=== PATIENT | female | born 1980 | race African-American/Black ===

== ENCOUNTER 2018-04-14 18:07 | Emergency (ER) | payer SELFPAY | END 2018-04-14 18:08 | disposition left against medical advice (07) | LOC: ERS 18:07 | DX: Z53.21 Procedure and treatment not carried out due to patient leaving prior to being seen by health care provider (principal) ==

== ENCOUNTER 2019-04-30 16:01 | Observation (INO) | payer SELFPAY ==
[2019-04-30 17:30] LABS: #Eosinphils 0.2 thou/uL (0.0-0.7); #Lymphocytes 1.8 thou/uL (1.20-3.40); #Monocytes 0.5 thou/uL (0.11-0.59); #Neutrophils 4.7 thou/uL (1.40-6.50); %Basophils 0.3 % (0.0-1.0); %Eosinophils 2.2 % (0.0-10.0); %Lymphocytes 24.5 % (21.0-51.0); %Monocytes 6.8 % (0.0-10.0); %Neutrophils 66.3 % (42.0-75.0); Hemoglobin 9.7 g/dL (12.0-16.0); Mean Corpuscular HGB CONC 30.7 g/dL (32.0-36.0); Mean Corpuscular Hemoglobin 24.8 pg (27.0-31.0); Mean Corpuscular Volume 80.7 fL (78.0-98.0); Mean Platelet Volume 9.2 fL (7.4-10.4); Platelet Count 192 thou/uL (130-400); RBC Distribution Width 17.9 % (11.5-14.5); Red Blood Cell (RBC) Count 3.91 mill/uL (4.20-5.40); White Blood Cell (WBC) Count 7.1 thou/uL (4.8-10.8)
[2019-04-30 18:00] LABS: ALT (SGPT) 10 U/L (8-55); AST (SGOT) 18 U/L (5-34); Albumin 4.4 g/dL (3.5-5.0); Alkaline Phosphatase 59 U/L (40-110); Anion Gap 8 mmol/L (10-20); BUN (Urea Nitrogen) 5 mg/dL (7.0-18.7); Bilirubin, Total 0.4 mg/dL (0.2-1.2); CK (CPK) 84 U/L (29-168); Calc. Creatinine Clearance 0 mL/min (70-130); Calcium 9.2 mg/dL (7.8-10.44); Carbon Dioxide 26 mmol/L (22-29); Chloride 108 mmol/L (98-107); Estimated GFR-MDRD 79; Globulin 3.6 g/dL (2.4-3.5); Glucose 95 mg/dL (70-105); Potassium 4.1 mmol/L (3.5-5.1); Sodium 138 mmol/L (136-145)
[2019-04-30] MEDS ORDERED: Aspirin Chewable 81 MG TAB ONE (18:02)
--- NOTE | 2019-04-30 18:22 | RAD ---
XR Chest 1 View Portable History: Chest pain Comparison: None. Findings: Lungs are clear. No pneumothorax. No effusion. No acute osseous abnormality. Impression: No acute intrathoracic abnormality.
--- NOTE | 2019-04-30 21:07 | HP ---
PRESENTING COMPLAINT: Substernal chest pain. HISTORY OF PRESENT ILLNESS: Ms. Prasanna Celis is a 38-year-old female with past medical history of illicit drug use, history of presumed coronary artery disease, who presented to the hospital today because of substernal chest pain, which happened earlier this evening while transporting her granddaughter to the hospital after the granddaughter was having seizures. The patient states she was in the ambulance with her granddaughter when she started experiencing substernal chest pain. Pain was nonradiating, associated with feeling of dizziness. She denies any nausea or vomiting. She states she had similar pain in 2007. She was diagnosed with having an NC. Though she states she did not have a cardiac cath done or stress test before, she was discharged from the hospital bed, no cardiology followup was scheduled for her. There is no immediate family history of coronary artery disease, although extensive history of diabetes and hypertension. She admits to previous tobacco use as well as illicit drug use, but stopped over 10 years ago now. She rates pain now at about 3/10 after sublingual nitroglycerin. PAST MEDICAL HISTORY: Self-reported, coronary artery disease in 2007. PAST SURGICAL HISTORY: None. SOCIAL HISTORY: History of former tobacco use. Occasional alcohol use now. No history of illicit drug use now. FAMILY HISTORY: Significant for parents with diabetes and hypertension, but no coronary artery disease. Grandmother with history of congestive heart failure. REVIEW OF SYSTEMS: All systems review x14 were negative. The patient admits to some intermittent cramping and tingling in the lower extremity, symptoms does not appear to be worsened with walking. HOME MEDICATIONS: Unknown. ALLERGIES: NO KNOWN DRUG ALLERGIES. PHYSICAL EXAMINATION: CURRENT VITAL SIGNS: Blood pressure of 129/68, respiratory rate of 18, O2 sat is 95% on room air, and temp afebrile. GENERAL: Slightly overweight young female, sitting up in bed. HEENT: Head is atraumatic and normocephalic. Pupils equal and reactive to light. NECK: No JVD. No carotid bruit. RESPIRATORY: Good air entry. No crepitations. CARDIOVASCULAR: S1 and S2, rate and rhythm regular. Mild lower sternal area tenderness on palpation. ABDOMEN: Full, soft, and nontender. No epigastric area tenderness. Bowel sounds positive. RECTAL: Deferred. EXTREMITIES: No calf tenderness. No pedal edema. NEUROLOGIC: The patient is alert and oriented. Cranial nerves 2 through 12 grossly intact. LABORATORY DATA: WBC 7.1, hemoglobin 9.7, and platelet 192. Sodium 138, potassium 4.1, BUN 5, and creatinine 0.9. Troponin 0.012. CK 84. AST and alkaline phosphatase normal. Chest x-ray shows no acute intrathoracic abnormality. EKG shows normal sinus rhythm, no ST-segment changes, but noted T-wave inversion in all the leads. IMPRESSION: 1. Atypical chest pain - possibly due to acute coronary syndrome, although low likelihood. Present of T-wave changes, may be due to previous drug-induced injury. We will do serial set of cardiac enzymes. We will continue nitroglycerin paste for now. We will also continue . The patient will benefit from inpatient or outpatient stress test if negative cardiac enzymes. 2. Anemia. We will obtain iron profile. 3. Deep venous thrombosis prophylaxis, subcutaneous Lovenox. 4. Advanced directives. The patient is full code. Total time spent on review of record, discussion with the patient and evaluation is greater than 60 minutes. Job ID: [id number]
[2019-04-30] MEDS ORDERED: Sodium Chloride 0.9% 1,000 ML IV SCH (22:03)
[2019-04-30] MEDS ORDERED: Morphine 2 MG/ML SYRINGE SLOW IVP PRN (22:03)
[2019-04-30] MEDS ORDERED: Acetaminophen 325 MG TAB PO PRN (22:03)
[2019-04-30] MEDS ORDERED: Famotidine 20 MG TAB PO SCH (22:15)
[2019-04-30] MEDS: HYDROcodone/Acetaminophen 5/325 mg Tablet PO PRN (22:17)
[2019-04-30 22:38] LABS: Iron 28 ug/dL (50-170); Iron Binding Capacity, Total 410 mcg/dL (265-497)
[2019-04-30 22:43] LABS: Troponin I 0.019 ng/mL (< 0.028)
[2019-05-01] MEDS: Nitroglycerin 2% Ointment 1 INCH/1 GM Packet TOP SCH ×2 (01:24→12:43)
[2019-05-01 02:22] LABS: Troponin I Less than 0.010 ng/mL (< 0.028)
[2019-05-01 02:44] LABS: ALT (SGPT) 8 U/L (8-55); AST (SGOT) 15 U/L (5-34); Albumin 3.9 g/dL (3.5-5.0); Alkaline Phosphatase 52 U/L (40-110); Anion Gap 9 mmol/L (10-20); BUN (Urea Nitrogen) 6 mg/dL (7.0-18.7); Bilirubin, Total 0.3 mg/dL (0.2-1.2); Calc. Creatinine Clearance 114 mL/min (70-130); Calcium 8.9 mg/dL (7.8-10.44); Carbon Dioxide 26 mmol/L (22-29); Cardiac Risk 4.5 (Less than 4.5); Chloride 107 mmol/L (98-107); Cholesterol 113 mg/dl (< 200 Desired); Estimated GFR-MDRD 84; Globulin 3.5 g/dL (2.4-3.5); Glucose 109 mg/dL (70-105); HDL Cholesterol 25 mg/dL (>60 Neg Risk); LDL Cholesterol, Calculated 73 mg/dL; Potassium 3.9 mmol/L (3.5-5.1); Protein, Total 7.4 g/dL (6.0-8.3); Sodium 138 mmol/L (136-145); Triglycerides 75 mg/dL (Less than 150)
[2019-05-01] MEDS ORDERED: Ferrous Sulfate 325 MG TAB PO SCH (08:00)
[2019-05-01] MEDS ORDERED: Aspirin 325 MG TAB PO SCH (08:00)
[2019-05-01] MEDS ORDERED: Enoxaparin Sodium 40 MG/0.4 ML SYRINGE SC SCH (09:00)
[2019-05-01] MEDS ORDERED: FLU VACC QS2019-20(6MOS UP)/PF 60 MCG/0.5 ML SYRINGE IM ONE (09:00)
[2019-05-01] MEDS ORDERED: Famotidine 20 MG TAB PO SCH (09:00)
[2019-05-01] MEDS ORDERED: ADENOSINE 60 MG/20 ML VIAL ONE (11:32)
[2019-05-01 12:41] VITALS: BP 126/90; TEMP 98.1
[2019-05-01] MEDS: HYDROcodone/Acetaminophen 5/325 mg Tablet PO PRN (12:41)
[2019-05-01] MEDS: Aspirin 325 mg Enteric Coated Tablet PO SCH ×2 (12:42→12:43)
[2019-05-01 12:53] LABS: BHCG - Serum Negative (NEGATIVE); Pregs Control Background? CLEAR/WHITE (CLR/WHITE); Pregs Control Bar Appear? YES (CONTROL BAR)
[2019-05-01] MEDS ORDERED: Benzonatate 100 MG CAP PO PRN (13:15)
--- NOTE | 2019-05-01 14:46 | NM ---
Nuclear medicine myocardial perfusion scan: 05/01/2019 COMPARISON: None HISTORY: Chest pain TECHNIQUE: SPECT imaging of the left ventricular myocardium obtained during stress and rest following the intravenous administration of 31.2 and 9.1mCi technetium 99 M labeled sestamibi respectively. FINDINGS: No discrete reversible defect. There is a very small fixed defect at the cardiac apex/anter ior wall junction. TID is 1.1. Left ventricular wall motion appears within normal limits. End-diastolic volume is 95 mL and end systolic volume is 44 mL. Left ventricular ejection fraction is estimated at 54%. IMPRESSION: No discrete reversible defect. Normal left ventricular wall motion. Estimated LVEF of 54%.
[2019-05-01] MEDS ORDERED: Nicotine 14 MG PATCH TD SCH (15:00)
--- NOTE | 2019-05-01 17:43 | DIS ---
DATE OF ADMISSION: 04/30/2019 DATE OF DISCHARGE: 05/01/2019 DISCHARGE DIAGNOSES: 1. Chest pain. 2. Anemia. HOSPITAL COURSE: The patient is a 38-year-old female, who initially presented to the hospital with complaints of chest tightness. Her troponins x3 were unremarkably negative. She was found to have some mild iron deficiency anemia. Serum was negative. She underwent a stress test, which indicated a non-discrete reversible defect, normal left ventricular wall motion, EF of 54%. She does have a history of prior NM. This was possible attributed to substance abuse. The patient currently feels well. She is chest pain-free. She will be discharged home. Her home medications will be iron 325 daily and I have asked her to take a stool softener. PHYSICAL EXAMINATION: VITAL SIGNS: Temperature 98.1, heart rate 72, respiratory rate 20, oxygen saturation 100% on room air, blood pressure 126/90. GENERAL: She is awake, alert, and oriented x3. Does not appear in distress. CV: S1 and S2 present. No murmurs, rubs, or gallops. ABDOMEN: Soft and nontender. Bowel sounds are present x2. LABORATORY DATA: Her LDL was high, and her HDL was low. ASSESSMENT AND PLAN: I have told her about diet, exercise, and she currently does not want to be medicated. She wants to try diet, exercise, and she wants to follow up with her primary, which I think she should next week and I have asked her to repeat her cholesterol levels in the next 3 to 6 months. Job ID: [id number]
== END 2019-05-01 16:38 | disposition home or self-care (01) ==
LOC: ERS 16:01 → 2SW 22:02 → INTOOBSV 22:02
PROVIDERS: ADMIT Internal Medicine; ATTEND Internal Medicine
DX: R07.89 Other chest pain (principal); D50.9 Iron deficiency anemia, unspecified; I25.10 Atherosclerotic heart disease of native coronary artery without angina pectoris; I25.2 Old myocardial infarction; Z87.891 Personal history of nicotine dependence; Z88.5 Allergy status to narcotic agent
CPT/HCPCS: 36415; 71045; 78452; 80053; 80061; 82550; 83540; 83550; 84484; 84703; 85025; 93005; 93017; 94760; 96360; 96361; 96372; A9500; G0378; J0153; J1650

== ENCOUNTER 2019-09-07 11:24 | Observation (INO) | payer SELFPAY ==
[~2019-09-07 11:24] MED LIST: Iopamidol-370 76% 500 ML 1 ML ONE
--- NOTE | 2019-09-07 11:54 | CT ---
Exam: CT brain PROVIDED CLINICAL HISTORY: Left-sided numbness COMPARISON: None FINDINGS: The ventricular system is normal in size and morphology. No evidence for intracranial hemorrhage or mass effect. The extracranial soft tissues and osseous structures demonstrate no evidence for an acute abnormality. IMPRESSION: No evidence for intracranial hemorrhage or mass effect. Findings communicated to Dr. Verma at 11:5 1 AM 09/07/2019.
[2019-09-07 11:56] LABS: #Basophils 0.1 thou/uL (0.0-0.2); #Eosinphils 0.2 thou/uL (0.0-0.7); #Lymphocytes 1.6 thou/uL (1.20-3.40); #Monocytes 0.5 thou/uL (0.11-0.59); %Basophils 2.1 % (0.0-1.0); %Eosinophils 4.3 % (0.0-10.0); %Lymphocytes 37.5 % (21.0-51.0); %Monocytes 11.3 % (0.0-10.0); %Neutrophils 44.9 % (42.0-75.0); Hemoglobin 8.6 g/dL (12.0-16.0); Mean Corpuscular HGB CONC 30.6 g/dL (32.0-36.0); Mean Corpuscular Hemoglobin 23.4 pg (27.0-31.0); Mean Corpuscular Volume 76.4 fL (78.0-98.0); Mean Platelet Volume 10.1 fL (7.4-10.4); Platelet Count 284 thou/uL (130-400); RBC Distribution Width 19.1 % (11.5-14.5); Red Blood Cell (RBC) Count 3.67 mill/uL (4.20-5.40); White Blood Cell (WBC) Count 4.4 thou/uL (4.8-10.8)
--- NOTE | 2019-09-07 12:09 | CT ---
EXAM: CT angiogram chest and abdomen with IV contrast and 3-D reconstructions PROVIDED CLINICAL HISTORY: Chest and back pain as well as left-sided weakness COMPARISON: None FINDINGS: The thoracic and abdominal aorta are normal in caliber without evidence of an aortic dissection. Ther e is a common origin of the innominate artery and left common carotid artery. The origins of the great vessels are patent. The celiac, superior mesenteric, and inferior mesenteric arteries are paten t. The imaged portions of the bilateral common iliac arteries are patent. Few small blebs are seen within the right upper lobe. Minimal linear atelectasis is present in the le ft lower lobe. There is a small nonspecific approximately 3 mm pleural-based nodular density posterior aspect right lower lobe. No pulmonary nodule, mass, or pleural effusion is identified. No c onsolidation is seen in the lungs bilaterally. There is no evidence of mediastinal, hilar, or axillary lymphadenopathy. The liver, spleen, pancreas, bilateral adrenal glands, and kidneys demonstrate a normal CT appearance for arterial phase of imaging. No free fluid, fluid collection, or lymphadenopathy is seen in the abdomen. The appendix where visualized is normal in caliber. Loops of small bowel are also normal in caliber. No suspicious lytic or sclerotic osseous lesions are identified. IMPRESSION: 1. Thoracic and abdominal aorta are normal in caliber without evidence of an aortic dissection or ane urysm. 2. No acute findings are seen in the chest or abdomen.
[2019-09-07 12:22] LABS: ALT (SGPT) 10 U/L (8-55); AST (SGOT) 20 U/L (5-34); Albumin 4.1 g/dL (3.5-5.0); Alkaline Phosphatase 57 U/L (40-110); Anion Gap 14 mmol/L (10-20); BUN (Urea Nitrogen) 4 mg/dL (7.0-18.7); Bilirubin, Total 0.3 mg/dL (0.2-1.2); CK (CPK) 209 U/L (29-168); Calc. Creatinine Clearance 0 mL/min (70-130); Calcium 9.1 mg/dL (7.8-10.44); Carbon Dioxide 20 mmol/L (22-29); Chloride 106 mmol/L (98-107); Estimated GFR-MDRD 86; Globulin 3.8 g/dL (2.4-3.5); Glucose 92 mg/dL (70-105); Potassium 3.7 mmol/L (3.5-5.1); Protein, Total 7.9 g/dL (6.0-8.3); Sodium 136 mmol/L (136-145)
[2019-09-07 12:40] LABS: Bilirubin Negative (Negative); Blood, Urine Negative (Negative); Clarity Clear (Clear); Glucose, Urine (Dipstick) Normal (Negative); Leukocyte Negative Leu/uL (Negative); Nitrite Negative (Negative); Protein, Urine (Dipstick) Negative (Neg-Trace); Urobilinogen Normal mg/dL (Less than 2)
[2019-09-07 12:53] LABS: Amphetamine Not Detected (NotDetected); Barbiturates Screen Not Detected (NotDetected); Benzodiazepine Screen Not Detected (NotDetected); Cocaine Metabolite Screen Not Detected (NotDetected); Medtox Control Line Valid? VALID (VALID); Medtox Reader # READER 4; Methadone Not Detected (NotDetected); Methamphetamine Not Detected (NotDetected); Opiate Screen Not Detected (NotDetected); Oxycodone Screen Not Detected (NotDetected); Phencyclidine (PCP) Not Detected (NotDetected); THC/Cannabinoid Screen Detected (NotDetected); Tricyclic Screen Not Detected (NotDetected)
[2019-09-07] MEDS ORDERED: Ketorolac Tromethamine 30 MG/ML VIAL ONE (13:06)
[2019-09-07 14:22] VITALS: BMI 30.7
[2019-09-07 15:11] LABS: Troponin I Less than 0.010 ng/mL (< 0.028)
[2019-09-07 18:11] LABS: Troponin I Less than 0.010 ng/mL (< 0.028)
[2019-09-07] MEDS ORDERED: Pantoprazole 40 MG VIAL IVP SCH (18:45)
--- NOTE | 2019-09-07 18:55 | PDOC.HHP ---
Hospitalist HPI - History of Present Illness chest pain History of Present Illness: 39yo F w/ MHx of HTN and reported AMI presents for chest pain. Woken up by pain this morning, stabbing, right below sternum, radiating to the right and back, constant. Has never had such pain of that character before. attempted to take aspirin for the pain but wasn't improving so was brought to the ED. on encounter, lying comfortably in bed and has complains of thoracic back pain. Denies fever, n/v, fatigue, syncope presyncope, arm or jaw pain, palpitations, swelling, pleuritic pain, cough, diarrhea, hematochezia, melena, dysuria, hematuria, abnormal menses, trauma ED Course: In the ED, found to have weakness and numbness on the left side. CT brain and thorax revealed no ischemia or dissection. She was admitted to the stroke unit for additional workup and managmeent Hospitalist ROS - Review of Systems All other systems reviewed; all pertinent +/- noted in HPI/Subj Hospitalist History - Past Medical History Source: patient, old records Cardiac: reports: TX (unconfirmed), Hyperlipidemia Pulmonary: reports: hypertension. denies: CVA/TIA/stroke, congestive heart failure Gastrointestinal: denies: GERD, GI bleed, Gastritis, Peptic ulcer disease Heme/Onc: reports: Anemia NOS Psych: denies: Addictions - Past Surgical History Past Surgical History: reports: no pertinent history - Family History Family History: reports: cancer, hypertension - Social History Smoking Status: Former smoker Tobacco Type: cigarettes Alcohol: reports: None Drugs: reports: none Living Situation: With Family Domestic Violence: Negative Activity level: independent ambulation Other Social History: sexually inactive for the past several months - Exam General Appearance: NAD, awake alert Eye: PERRL Neck: no JVD, no carotid bruit Heart: RRR, no murmur, no gallops, no rubs Respiratory: CTAB, no wheezes, no rales, no ronchi Gastrointestinal: soft, non-tender, non-distended, normal bowel sounds Extremities: no edema Neurological: cranial nerve grossly intact. negative: facial droop, hemiplegia , speech deficit, vision deficit Neurological - other findings: L upper and lower 4/5; reduced sensation to light touch; R intact Musculoskeletal - other findings: severe point tenderness at level T6-T7 Psychiatric: normal affect, normal behavior, A&O x 3 Hospitalist Results - Labs Result Diagrams: 09/07/19 11:48 09/07/19 17:36 Lab results: WBC 4.4 thou/uL (4.8-10.8) L 09/07/19 11:48 Hgb 8.6 g/dL (12.0-16.0) L 09/07/19 11:48 Hct 28.0 % (36.0-47.0) L 09/07/19 11:48 MCV 76.4 fL (78.0-98.0) L 09/07/19 11:48 Plt Count 284 thou/uL (130-400) 09/07/19 11:48 Neutrophils % 44.9 % (42.0-75.0) 09/07/19 11:48 Sodium 136 mmol/L (136-145) 09/07/19 11:48 Potassium 3.7 mmol/L (3.5-5.1) 09/07/19 11:48 Chloride 106 mmol/L (98-107) 09/07/19 11:48 Carbon Dioxide 20 mmol/L (22-29) L 09/07/19 11:48 BUN 4 mg/dL (7.0-18.7) L 09/07/19 11:48 Creatinine 0.88 mg/dL (0.6-1.1) 09/07/19 11:48 Glucose 92 mg/dL (70-105) 09/07/19 11:48 Calcium 9.1 mg/dL (7.8-10.44) 09/07/19 11:48 Total Bilirubin 0.3 mg/dL (0.2-1.2) 09/07/19 11:48 AST 20 U/L (5-34) 09/07/19 11:48 ALT 10 U/L (8-55) 09/07/19 11:48 Alkaline Phosphatase 57 U/L (40-110) 09/07/19 11:48 Creatine Kinase 209 U/L (29-168) H 09/07/19 11:48 Troponin I Less than 0.010 ng/mL (< 0.028) 09/07/19 17:36 Serum Total Protein 7.9 g/dL (6.0-8.3) 09/07/19 11:48 Albumin 4.1 g/dL (3.5-5.0) 09/07/19 11:48 Urine Ketones Negative mg/dL (Negative) 09/07/19 12:25 Urine Blood Negative (Negative) 09/07/19 12:25 Urine Nitrite Negative (Negative) 09/07/19 12:25 Ur Leukocyte Esterase Negative Jocy/uL (Negative) 09/07/19 12:25 - EKG Interpretation EKG: normal sinus with no signs of ischemia - Radiology Interpretation CT scan - head Status: report reviewed by me CT scan - chest Status: report reviewed by me Hospitalist H&P A/P - Problem (1) Epigastric abdominal pain Code(s): R10.13 - EPIGASTRIC PAIN Status: Acute (2) Left-sided weakness Code(s): R53.1 - WEAKNESS Status: Acute (3) Hypertension Code(s): I10 - ESSENTIAL (PRIMARY) HYPERTENSION Status: Acute - Plan Plan: #left sided weakness #TIA -patient's symptoms resolved in ED, now exhibits 4/5 upper and lower extremity -CT head showing no hemorrhage or signs of ischemia; CT dissection unremarkable -patient endorses high BP sometime SBP > 180s; -admitted to telemetry -may be a result of hypertensive emergency; will continue to follow #epigastric pain -radiating to the back -woke patient up from sleep -noncardiac; had stress test in 2019; trop -ve and EKG sinus with no signs of ischemia -microcytic anemia; endorses normal menses -FOBT; if positive, will assess indication for urgent endoscopy -iron panel -lipase, CMP, gallbladder US #back pain -reports of acute thoracic back pain approx level T6 with radiculopathic symptoms -severe point tenderness on exam with no overlying skin changes -history of substance abuse; not honest about current abuse -tylenol PRN; if no relief, norco PRN -thoracic x-ray 2 view #substance abuse -urine +ve for cannabis; denies abusing Full code DVT PPx: SCDs GI PPx on pantoprazole for possible GI bleed patient's surrogate is ; expected LOS 1 midnight
[2019-09-07] MEDS ORDERED: Acetaminophen 650 MG/20.3 ML UDCUP PO PRN (18:56)
[2019-09-07 19:25] LABS: ALT (SGPT) 9 U/L (8-55); AST (SGOT) 19 U/L (5-34); Albumin 3.9 g/dL (3.5-5.0); Alkaline Phosphatase 50 U/L (40-110); Anion Gap 13 mmol/L (10-20); BUN (Urea Nitrogen) 4 mg/dL (7.0-18.7); Bilirubin, Total 0.4 mg/dL (0.2-1.2); Calc. Creatinine Clearance 103 mL/min (70-130); Calcium 8.7 mg/dL (7.8-10.44); Carbon Dioxide 22 mmol/L (22-29); Chloride 104 mmol/L (98-107); Estimated GFR-MDRD 81; Globulin 3.6 g/dL (2.4-3.5); Glucose 97 mg/dL (70-105); Iron 16 ug/dL (50-170); Iron Binding Capacity, Total 374 mcg/dL (265-497); Iron Binding Capacity, Total 383 mcg/dL (265-497); Lipase 11 U/L (8-78); Potassium 3.3 mmol/L (3.5-5.1); Protein, Total 7.5 g/dL (6.0-8.3); Sodium 136 mmol/L (136-145)
[2019-09-07] MEDS ORDERED: Sodium Chloride 0.9% (PF) 10 ML VIAL FS PRN (19:25)
--- NOTE | 2019-09-07 20:13 | RAD ---
Radiograph thoracic spine 3 views: HISTORY: 39-year-old female with mid back pain and point tenderness. FINDINGS: Vertebral body heights are maintained. No high-grade degenerative disc disease. Pedicles are intact. IMPRESSION: Negative
[2019-09-07] MEDS: HYDROcodone/Acetaminophen 5/325 mg Tablet PO PRN (21:07)
[2019-09-07] MEDS: Pantoprazole 40 MG VIAL IVP SCH (21:11)
[2019-09-08 04:59] LABS: #Basophils 0.1 thou/uL (0.0-0.2); #Eosinphils 0.2 thou/uL (0.0-0.7); #Lymphocytes 1.7 thou/uL (1.20-3.40); #Monocytes 0.4 thou/uL (0.11-0.59); #Neutrophils 3.2 thou/uL (1.40-6.50); %Basophils 1.1 % (0.0-1.0); %Eosinophils 3.6 % (0.0-10.0); %Lymphocytes 29.8 % (21.0-51.0); %Monocytes 7.6 % (0.0-10.0); %Neutrophils 57.8 % (42.0-75.0); Mean Corpuscular Hemoglobin 23.1 pg (27.0-31.0); Mean Corpuscular Volume 77.1 fL (78.0-98.0); Mean Platelet Volume 9.9 fL (7.4-10.4); Platelet Count 224 thou/uL (130-400); RBC Distribution Width 19.3 % (11.5-14.5); Red Blood Cell (RBC) Count 3.44 mill/uL (4.20-5.40); White Blood Cell (WBC) Count 5.6 thou/uL (4.8-10.8)
--- NOTE | 2019-09-08 07:41 | ULT ---
EXAM: Right upper quadrant ultrasound PROVIDED CLINICAL HISTORY: Epigastric pain COMPARISON: None FINDINGS: Visualized portions of the pancreas appear normal. Liver demonstrates no mass or intrahepatic biliary ductal dilatation. Common duct is nondilated. Gallbladder demonstrates no stones, wall thickening or pericholecystic flu id. Right kidney demonstrates no hydronephrosis or mass. IMPRESSION: Unremarkable right upper quadrant ultrasound.
[2019-09-08] MEDS: HYDROcodone/Acetaminophen 5/325 mg Tablet PO PRN (08:32)
[2019-09-08] MEDS: Pantoprazole 40 MG VIAL IVP SCH (08:33)
[2019-09-08] MEDS ORDERED: Enoxaparin Sodium 30 MG/0.3 ML SYRINGE SC SCH (09:00)
[2019-09-08] MEDS ORDERED: Aspirin Chewable 81 MG TAB PO SCH (09:00)
[2019-09-08 11:41] VITALS: BP 106/62; TEMP 97.6
--- NOTE | 2019-09-09 11:25 | DIS ---
DATE OF ADMISSION: 09/07/2019 DATE OF DISCHARGE: 09/08/2019 HOSPITAL COURSE: Ms. Mims is a 39-year-old female with a medical history of hypertension, who presented with chest pain. She was diagnosed with musculoskeletal chest pain. 1. Musculoskeletal chest pain: The patient reported a history of coronary artery disease. However, no documentation in the EMR suggesting such diagnosis. The patient also had a recent nuclear stress test that was negative. This admission, the patient had noncardiac chest pain, troponin x3 were negative, and EKG was unremarkable for ischemic changes. The patient's chest pain spontaneously resolved the day following presentation. The patient was educated regarding management of musculoskeletal chest pain as well as preventive measures in terms of posture and exercising. 2. Left-sided weakness, TIA: The patient's symptoms resolved in the ED. CT of the head showed no hemorrhage or signs of ischemia. CT thorax was unremarkable for aortic dissection. The patient endorsed high blood pressure at home, sometimes more than systolic of 180s. During the telemetry stay, no arrhythmias were appreciated. It has been TIA due to hypertensive emergency. Can be followed by primary care physician, and if recurs, additional workup should be done. 3. Epigastric pain: Per the patient, radiated to the back. Also has microcytic anemia, which are likely due to menses. Lipases and gallbladder ultrasound were unremarkable. The patient was discharged on iron supplementation and will be followed by primary care physician. 4. Back pain: The patient reported acute thoracic back pain approximately at the level of T6 with radiculopathic symptoms. Severe point tenderness on exam with no overlying skin changes. The patient does have a history of substance abuse and was not forthcoming regarding her current cannabis abuse, considering urine drug screen was positive. Thoracic x-ray was negative for any degenerative disk diseases. Likely musculoskeletal. The patient was requested to use Tylenol p.r.n. pain. 5. Substance abuse: Urine drug screen was positive for cannabis. However, the patient denies abusing. Should be addressed by the primary care physician. On the day of discharge, the patient was hemodynamically stable and had no complaints. PHYSICAL EXAMINATION: GENERAL APPEARANCE: No apparent distress. Awake and alert. EYES: PERRL. NECK: No JVD. No carotid bruit. HEART: Regular rate and rhythm. No murmur. No gallops. No rubs. The patient has been in sinus rhythm throughout her inpatient telemetry stay. RESPIRATORY: Clear to auscultation bilaterally. No wheezes, no rales, no rhonchi. GI: Soft, nontender, nondistended. Normal bowel sounds. EXTREMITIES: No edema. NEUROLOGICAL: Cranial nerves grossly intact. Negative for facial droop, hemiplegia, speech deficit, vision deficit, or reduced sensation throughout the body. PSYCHIATRIC: Normal affect, normal behavior, alert and oriented x3. Job ID: [id number]
--- NOTE | 2019-09-13 13:28 | EKG ---
Test Reason : Blood Pressure : / mmHG Vent. Rate : 076 BPM Atrial Rate : 076 BPM P-R Int : 104 ms QRS Dur : 076 ms QT Int : 396 ms P-R-T Axes : 036 064 054 degrees QTc Int : 445 ms Sinus rhythm Nonspecific T wave abnormality Abnormal ECG Artifact Confirmed by BASHIR FAULKNER DO ([id number]), makeup editor WANDA MACK ([id number]) on 09/13/2019 1:28:16 PM Referred By: Confirmed By:BASHIR FAULKNER DO
== END 2019-09-08 13:43 | disposition home or self-care (01) ==
LOC: ERS 11:24 → 2SE 12:51
PROVIDERS: ADMIT Internal Medicine; ATTEND Internal Medicine
DX: R07.89 Other chest pain (principal); R10.13 Epigastric pain; M54.9 Dorsalgia, unspecified; R29.898 Other symptoms and signs involving the musculoskeletal system; I10 Essential (primary) hypertension; I25.2 Old myocardial infarction; E78.5 Hyperlipidemia, unspecified; Z87.891 Personal history of nicotine dependence; Z79.899 Other long term (current) drug therapy
CPT/HCPCS: 36415; 36416; 70450; 71275; 72070; 72191; 74175; 76705; 80053; 80306; 81003; 82274; 82550; 82728; 83540; 83550; 83690; 84484; 85025; 93005; 96374; 96375; 96376; C9113; G0378; J1885; Q9967

== ENCOUNTER 2021-05-14 20:54 | Emergency (ER) | payer SELFPAY ==
[2021-05-14 22:48] LABS: ALT (SGPT) Less than 7 U/L (8-55); AST (SGOT) 11 U/L (5-34); Albumin 4.4 g/dL (3.5-5.0); Alkaline Phosphatase 46 U/L (40-110); Anion Gap 10 mmol/L (10-20); BUN (Urea Nitrogen) 10 mg/dL (7.0-18.7); Bilirubin, Total 0.3 mg/dL (0.2-1.2); Calc. Creatinine Clearance 0 mL/min (70-130); Calcium 9.4 mg/dL (7.8-10.44); Carbon Dioxide 23 mmol/L (22-29); Chloride 107 mmol/L (98-107); Globulin 3.8 g/dL (2.4-3.5); Glucose 99 mg/dL (70-105); Potassium 3.7 mmol/L (3.5-5.1); Protein, Total 8.2 g/dL (6.0-8.3); Sodium 136 mmol/L (136-145)
[2021-05-14 23:00] LABS: Hemoglobin 5.6 g/dL (12.0-16.0)
[2021-05-14 23:37] LABS: Anisocytosis SLIGHT = 6-15 cells (100X) (0-5/hpf); Band 4 % (5-11); Lymphocytes 19 % (21-51); MDiff Complete? YES; Mean Corpuscular HGB CONC 27.2 g/dL (32.0-36.0); Mean Corpuscular Hemoglobin 19.6 pg (27.0-31.0); Mean Platelet Volume 10.3 fL (7.4-10.4); Monocytes 7 % (0-10); Neutrophil 69 % (42-75); Nucleated RBC 1 % (0); Ovalocytes SLIGHT = 2-5 cells (100X) (0-1/hpf); Platelet Count 451 thou/uL (130-400); RBC Distribution Width 25.6 % (11.5-14.5); Red Blood Cell (RBC) Count 2.87 mill/uL (4.20-5.40)
[2021-05-14 23:54] LABS: Iron Less than 8 ug/dL (50-170); Iron Binding Capacity, Total 451 mcg/dL (265-497)
[2021-05-15 00:48] LABS: Troponin I Less than 0.010 ng/mL (< 0.028)
== END 2021-05-15 03:20 | disposition home or self-care (01) ==
LOC: ERS 20:54
DX: R07.9 Chest pain, unspecified (principal); D64.9 Anemia, unspecified; Z87.891 Personal history of nicotine dependence
CPT/HCPCS: 36415; 36430; 71045; 80053; 82728; 83540; 83550; 84484; 85025; 86850; 86900; 86901; 93005; P9016

== ENCOUNTER 2021-05-29 17:40 | Observation (INO) | payer SELFPAY ==
[2021-05-29 18:33] LABS: Bilirubin Negative (Negative); Blood, Urine 3+ (Negative); Clarity Clear (Clear); Glucose, Urine (Dipstick) Normal (Negative); Ketone, Urine Negative (Negative); Leukocyte Negative Leu/uL (Negative); Nitrite Negative (Negative); Protein, Urine (Dipstick) Negative (Neg-Trace); RBC/HPF 0-3 HPF (0-3); Specific Gravity, Urine 1.003 (1.002-1.036); Squamous Epithelial None Seen HPF (0-3); Urobilinogen Normal mg/dL (Less than 2); WBC/HPF 0-3 HPF (0-3)
[2021-05-29 18:34] LABS: Bacteria/HPF Rare-Few HPF (None Seen); Pregnancy Test - Urine (BHCG) Negative (Negative); Pregu Control Background? CLEAR/WHITE (CLR/WHITE); Pregu Control Bar Appear? YES (CONTROL BAR); Specific Gravity 1.003 (1.002-1.036)
[2021-05-29] MEDS ORDERED: Ketorolac Tromethamine 30 MG/ML VIAL ONE (18:52)
[2021-05-29 18:59] LABS: Mean Corpuscular HGB CONC 30.1 g/dL (32.0-36.0); Mean Corpuscular Hemoglobin 22.9 pg (27.0-31.0); Mean Corpuscular Volume 76.3 fL (78.0-98.0); Mean Platelet Volume 7.4 fL (7.4-10.4); Platelet Count 199 thou/uL (130-400); RBC Distribution Width 30.2 % (11.5-14.5); White Blood Cell (WBC) Count 6.9 thou/uL (4.8-10.8)
[2021-05-29 19:09] LABS: ALT (SGPT) 28 U/L (8-55); AST (SGOT) 30 U/L (5-34); Albumin 3.9 g/dL (3.5-5.0); Alkaline Phosphatase 61 U/L (40-110); Anion Gap 11 mmol/L (10-20); BUN (Urea Nitrogen) 6 mg/dL (7.0-18.7); Bilirubin, Total 0.3 mg/dL (0.2-1.2); Calc. Creatinine Clearance 0 mL/min (70-130); Calcium 8.9 mg/dL (7.8-10.44); Carbon Dioxide 24 mmol/L (22-29); Chloride 106 mmol/L (98-107); Globulin 3.5 g/dL (2.4-3.5); Glucose 95 mg/dL (70-105); Potassium 3.6 mmol/L (3.5-5.1); Protein, Total 7.4 g/dL (6.0-8.3); Sodium 137 mmol/L (136-145)
[2021-05-29 19:21] LABS: Anisocytosis MODERATE=16-30 cells (100X) (0-5/hpf); Band 1 % (5-11); Eosinophils 2 % (0-10); Hypochromia MODERATE=16-30 cells (100X) (0-5/hpf); Lymphocytes 30 % (21-51); MDiff Complete? YES; Metamyelocyte 1 % (0-0); Microcytosis MODERATE=15-30 cells (100X) (0-5/hpf); Monocytes 4 % (0-10); Myelocyte 3 % (0-0); Neutrophil 59 % (42-75); Platelet Morphology Comment Appears Adequate; Polychromasia SLIGHT = 2-3 cells (100X) (0-2/hpf)
[2021-05-29] MEDS ORDERED: Cyclobenzaprine 10 MG TAB PO PRN (22:13)
[2021-05-29] MEDS ORDERED: Calcium Carbonate 500 MG ChewTAB PO PRN (22:13)
[2021-05-29] MEDS: Acetaminophen 500 MG TAB PO SCH (23:51)
[2021-05-30] MEDS: Acetaminophen 500 MG TAB PO SCH (05:36)
[2021-05-30 07:44] LABS: Reticulocyte Count 5.1 % (0.5-1.5)
[2021-05-30 07:48] LABS: Mean Corpuscular HGB CONC 29.4 g/dL (32.0-36.0); Mean Corpuscular Hemoglobin 23.7 pg (27.0-31.0); Mean Corpuscular Volume 80.6 fL (78.0-98.0); Mean Platelet Volume 5.9 fL (7.4-10.4); Platelet Count 215 thou/uL (130-400); RBC Distribution Width 30.5 % (11.5-14.5); Red Blood Cell (RBC) Count 2.96 mill/uL (4.20-5.40); White Blood Cell (WBC) Count 5.9 thou/uL (4.8-10.8)
[2021-05-30 07:58] LABS: Iron 30 ug/dL (50-170); Iron Binding Capacity, Total 313 mcg/dL (265-497)
[2021-05-30 08:29] LABS: Anisocytosis MARKED = >30 cells (100X) (0-5/hpf); Band 2 % (5-11); Eosinophils 8 % (0-10); Hypochromia MODERATE=16-30 cells (100X) (0-5/hpf); Lymphocytes 26 % (21-51); MDiff Complete? YES; Metamyelocyte 1 % (0-0); Monocytes 5 % (0-10); Myelocyte 1 % (0-0); Neutrophil 57 % (42-75); Nucleated RBC 4 % (0); Ovalocytes SLIGHT = 2-5 cells (100X) (0-1/hpf); Platelet Morphology Comment Appears Adequate; Polychromasia MARKED = >4 cells (100X) (0-2/hpf); Tear Drops SLIGHT = 2-5 cells (100X) (0-1/hpf)
[2021-05-30] MEDS ORDERED: Iron Sucrose Complex 200 MG in Sodium Chloride 0.9% 100 ML IVPB SCH (08:30)
[2021-05-30] MEDS ORDERED: Iron, Sodium Ferric Gluconate 250 MG in Sodium Chloride 0.9% 250 ML 250 ML IVPB SCH (09:00)
[2021-05-30] MEDS ORDERED: Ibuprofen 600 MG TAB PO SCH (09:00)
[2021-05-30] MEDS ORDERED: Lidocaine 5% Patch TD SCH (10:30)
[2021-05-30 11:27] LABS: SARS-CoV-2 PCR by NAA Not Detected (NotDetected)
[2021-05-30 11:37] VITALS: BP 125/78; TEMP 98.1
[2021-05-30] MEDS ORDERED: Transdermal Patch Removal TOP SCH (22:30)
[2021-05-31] MEDS ORDERED: Lidocaine 5% Patch TD SCH (09:00)
[2021-06-03 15:13] LABS: A/G Ratio 1.1 (0.7-1.7); Albumin 3.5 g/dL (2.9-4.4); Alpha 1 0.2 g/dL (0.0-0.4); Alpha 2 0.5 g/dL (0.4-1.0); Beta 1.1 g/dL (0.7-1.3); Gamma 1.4 g/dL (0.4-1.8); Globulin, Total 3.2 g/dL (2.2-3.9); M-Spike Not Observed g/dL (Not Observed)
== END 2021-05-30 14:49 | disposition home or self-care (01) ==
LOC: ERS 17:40 → SJJU 21:53
PROVIDERS: ADMIT Emergency Medicine; ATTEND Emergency Medicine
DX: D61.9 Aplastic anemia, unspecified (principal); N93.9 Abnormal uterine and vaginal bleeding, unspecified; D25.9 Leiomyoma of uterus, unspecified; R07.9 Chest pain, unspecified; M25.511 Pain in right shoulder; M25.512 Pain in left shoulder; M54.2 Cervicalgia; M54.9 Dorsalgia, unspecified; I25.2 Old myocardial infarction; F14.10 Cocaine abuse, uncomplicated; M62.838 Other muscle spasm; Z87.891 Personal history of nicotine dependence; Z88.5 Allergy status to narcotic agent; Z97.5 Presence of (intrauterine) contraceptive device; Z20.822 Contact with and (suspected) exposure to COVID-19; V49.40XA Driver injured in collision with unspecified motor vehicles in traffic accident, initial encounter
CPT/HCPCS: 36415; 36430; 70450; 71045; 71260; 72125; 74177; 80053; 81003; 81015; 81025; 83540; 83550; 84165; 84484; 85025; 85046; 85060; 86850; 86870; 86900; 86901; 86904; 86905; 86922; 93005; 96374; 96375; G0378; J1885; J2916; J7050; P9016; U0003; U0005

== ENCOUNTER 2022-04-09 13:44 | Outpatient (CLI) | payer BC | END 2022-04-09 13:45 | disposition home or self-care (01) | LOC: BICULT 13:44 | PROVIDERS: ATTEND Nurse Practitioner Family | DX: D25.9 Leiomyoma of uterus, unspecified (principal); N92.1 Excessive and frequent menstruation with irregular cycle | CPT/HCPCS: 76856; 93976 ==